=== PATIENT | male | born 1945 | race Caucasian/White ===

== ENCOUNTER 2017-08-30 13:41 | Emergency (ER) | payer MEDICARE, BC ==
[~2017-08-30] VITALS: Ht 188 cm; Wt 93.4 kg
[2017-08-30] MEDS ORDERED: PIOG30TA10 PO (14:04)
[2017-08-30] MEDS ORDERED: ASPI81TA31 PO (14:04)
[2017-08-30] MEDS ORDERED: BENAZEPRIL (14:04)
[2017-08-30] MEDS ORDERED: FLEXERIL (14:04)
[2017-08-30] MEDS ORDERED: OXYCODONE (14:04)
[2017-08-30] MEDS ORDERED: CARV6.25 PO (14:04)
[2017-08-30] MEDS ORDERED: CO Q-10 (14:04)
[2017-08-30] MEDS ORDERED: JAYLIN (14:04)
[2017-08-30] MEDS ORDERED: MULT1TAB73 PO (14:04)
[2017-08-30] MEDS ORDERED: NIAC1000 PO (14:04)
[2017-08-30] MEDS ORDERED: PREVACID (14:04)
[2017-08-30] MEDS ORDERED: ASCO500C18 PO (14:04)
[2017-08-30] MEDS ORDERED: METF10004 PO (14:04)
[2017-08-30] MEDS ORDERED: CALCIUM (14:04)
[2017-08-30] MEDS ORDERED: ROSU20TA PO (14:04)
[2017-08-30] MEDS ORDERED: LEVO150T PO (14:04)
[2017-08-30] MEDS ORDERED: ACET-2605 PO (14:04)
[2017-08-30] MEDS ORDERED: MAGNESIUM (14:04)
--- NOTE | 2017-08-30 14:21 | NUR ---
PT IS IN ROOM #1B. DR REYES EVALUATED THE PT.
[2017-08-30 15:11] LABS: BASOPHILS % (AUTO) 0.4 % (0.0-2.0); EOSINOPHILS % (AUTO) 0.5 % (0.0-7.0); HEMATOCRIT 42.7 % (36.7-47.1); HEMOGLOBIN 14.5 g/dL (12.5-16.3); LYMPHOCYTES % (AUTO) 23.2 % (20.5-51.5); MEAN CORPUSCULAR HEMOGLOBIN 32.4 uug (23.8-33.4); MEAN CORPUSCULAR HGB CONC 34 g/dL (32.5-36.3); MEAN CORPUSCULAR VOLUME 95.5 fL (73.0-96.2); MONOCYTES # (AUTO) 0.8 K/uL (2.0-10.0); MONOCYTES % (AUTO) 9.2 % (0.0-11.0); NEUTROPHILS # (AUTO) 5.7 K/uL (1.8-8.9); NEUTROPHILS % (AUTO) 66.7 % (38.5-71.5); PLATELET COUNT (AUTO) 112 K/uL (152-348); RED BLOOD CELL COUNT(AUTO) 4.48 MIL/uL (4.06-5.63); WHITE BLOOD COUNT (AUTO) 8.6 K/uL (3.6-10.2)
[2017-08-30 15:11] LABS: *BILIRUBIN,URIN NEGATIVE (NEGATIVE); *BLOOD, URINE NEGATIVE (NEGATIVE); *CLARITY,URINE CLEAR (CLEAR); *COLOR,URINE YELLOW (YELLOW); *KETONES,URINE TRACE (NEGATIVE); *PROTEIN,URINE NEGATIVE (NEGATIVE); *UROBILINOGEN,URINE 0.2 E.U./dl (NORMAL); LEUKOCYTE ESTERASE ,URINE NEGATIVE (NEGATIVE); NITRITE, URINE NEGATIVE (NEGATIVE); PH,URINE 8.5 (5.0-8.0); UGLUCOSE NEGATIVE (NEGATIVE)
[2017-08-30 15:32] LABS: CARBON DIOXIDE 28 mmol/L (21-32); CHLORIDE 102 mmol/L (98-107); POTASSIUM 3.9 mmol/L (3.5-5.1)
[2017-08-30 15:33] LABS: CREATININE 1.3 mg/dL (0.6-1.3); GLUCOSE 126 mg/dL (74-106); UREA NITROGEN, BLOOD 20 mg/dL (7-18)
[2017-08-30 15:36] LABS: ALANINE AMINOTRANSFERASE 29 U/L (16-63); ALKALINE PHOSPHATASE 42 U/L (50-136); ASPARTATE AMINOTRANSFERASE 18 U/L (15-37); BILIRUBIN,DIRECT 0.2 mg/dL (0.0-0.2); BILIRUBIN,TOTAL 1.6 mg/dL (0.2-1.0); TOTAL PROTEIN, SERUM 7.4 g/dL (6.4-8.2)
--- NOTE | 2017-08-30 15:40 | NUR ---
Patient discharged to home in stable conditon. Written and verbal after care instructions given. Patient verbalizes understanding of instructions.PT WALKS IN STEADY GAIT. PT SAYS FEELS BETTER.
[2017-08-30 15:53] VITALS: BP 141/71
[2017-08-30 16:32] LABS: WBC,URINE NONE SEEN /HPF (0-3)
== END 2017-08-30 15:40 | disposition home or self-care (01) ==
LOC: ER 13:41
DX: R04.2 Hemoptysis (principal); J20.9 Acute bronchitis, unspecified; I10 Essential (primary) hypertension; E78.5 Hyperlipidemia, unspecified; E11.9 Type 2 diabetes mellitus without complications; E03.9 Hypothyroidism, unspecified; Z79.891 Long term (current) use of opiate analgesic; Z79.84 Long term (current) use of oral hypoglycemic drugs; Z79.899 Other long term (current) drug therapy; Z79.82 Long term (current) use of aspirin
CPT/HCPCS: 36415; 70030-TC; 71045; 83605; 85025; 85730; 87040; 87086; A4663